=== PATIENT | female | born 1950 | race Caucasian/White ===

== ENCOUNTER 2016-09-23 13:51 | Outpatient (CLI) | payer OTHER ==
--- NOTE | 2016-09-25 12:05 | DIAGNOSTIC IMAGING REPORT ---
PROCEDURE: MG BILATERAL SCREENING W/CAD INDICATION: Screening. Status post bilateral breast reduction surgery. TECHNIQUE: Bilateral CC and MLO digital views. COMPARISON: Compared to [facility] Santacruz (06/04/2015), and prior studies from [facility] on 04/21/2014, 03/24/2013, and 02/02/2012. FINDINGS: Computer-aided detection applied. Moderately dense and mildly nodular with a few scattered dystrophic calcifications. Postoperative changes consistent with prior breast reduction surgery. IMPRESSION: 1. Negative mammogram. RESULT CODE: 2- Benign finding(s). A. A negative report should not delay biopsy if a dominant or clinically suspicious mass is present. 10-15% of cancers are not identified by x-ray. B. A negative report may reinforce clinical impression. C. Adenosis and dense breasts may obscure an underlying neoplasm. D. False positive reports average 6-10%. E.. A yearly screening mammogram is recommended. A reminder letter will be scheduled.
--- NOTE | 2016-09-25 12:05 | DIAGNOSTIC IMAGING REPORT ---
PROCEDURE: MG BILATERAL SCREENING W/CAD INDICATION: Screening. Status post bilateral breast reduction surgery. TECHNIQUE: Bilateral CC and MLO digital views. COMPARISON: Compared to [facility] Santacruz (06/04/2015), and prior studies from [facility] on 04/21/2014, 03/24/2013, and 02/02/2012. FINDINGS: Computer-aided detection applied. Moderately dense and mildly nodular with a few scattered dystrophic calcifications. Postoperative changes consistent with prior breast reduction surgery. IMPRESSION: 1. Negative mammogram. RESULT CODE: 2- Benign finding(s). A. A negative report should not delay biopsy if a dominant or clinically suspicious mass is present. 10-15% of cancers are not identified by x-ray. B. A negative report may reinforce clinical impression. C. Adenosis and dense breasts may obscure an underlying neoplasm. D. False positive reports average 6-10%. E.. A yearly screening mammogram is recommended. A reminder letter will be scheduled.
== END 2016-09-23 23:00 ==
LOC: MAM SRH 13:51
DX: Z12.31 Encounter for screening mammogram for malignant neoplasm of breast (principal)